=== PATIENT | male | born 1940 | race Caucasian/White ===

== ENCOUNTER 2020-08-03 08:50 | Outpatient (REF) | payer BC, SELFPAY ==
--- NOTE | 2020-08-03 09:11 | XR_ITS ---
EXAMINATION: XR CHEST CLINICAL INFORMATION: History of tobacco use. COMPARISON: 09/24/2006 TECHNIQUE: 2 views of the chest were obtained. FINDINGS: The lungs are well expanded. There is no focal consolidation, edema, or effusion. No pneumothorax. The cardiomediastinal silhouette is within normal limits. No acute osseous abnormality. Degenerative changes noted in the spine. XR/XR chest 2V IMPRESSION: No acute pulmonary finding.
[2020-08-03 09:55] LABS: MANUAL DIFF FLAG NO
[2020-08-03 10:04] LABS: Basophils Percent Auto 0.3 % (0-2); Eosinophils Absolute Auto 0.2 X10*3/uL (0.0-0.4); Eosinophils Percent Auto 1.7 % (0-4); Hematocrit 44.2 % (42-52); Hemoglobin 14.2 g/dl (14.0-18.0); Imm Gran Abs Auto 0.04 X10*3/uL (0.00-0.03); Imm Gran Pct Auto 0.4 % (0.0-0.4); Lymphocytes Absolute Auto 1.8 X10*3/uL (1.2-4.9); Lymphocytes Percent Auto 17.9 % (20-40); Mean Corpuscular HGB Conc 32.1 g/dl (31.0-36.0); Mean Corpuscular Hemoglobin 29.2 pg (27.0-33.0); Mean Corpuscular Volume 90.8 fL (80-98); Mean Platelet Volume 10.3 fL (9.4-12.4); Monocytes Absolute Auto 0.8 X10*3/uL (0.1-1.2); Monocytes Percent Auto 7.8 % (2-11); Neutrophils Absolute Auto 7.4 X10*3/uL (2.0-8.3); Neutrophils Percent Auto 71.9 % (45-73); Platelet Count 323 X10*3/uL (160-400); Red Blood Count 4.87 X10*6/uL (4.60-5.80); Red Cell Distribution Width 13.2 % (11.0-16.0); White Blood Count 10.3 X10*3/uL (4.8-10.8)
[2020-08-03 10:20] LABS: Glucose Urine UA NEG (NEG); Leukocyte Esterase Urine NEG (NEG); Nitrite Urine NEG (NEG); Specific Gravity - Urine 1.025 (1.005-1.025); Urine Blood TRACE (NEG); Urine Ketones NEG (NEG); Urine Protein NEG (NEG-TRACE)
[2020-08-03 10:23] LABS: Appearance Urine HAZY; Color Urine YELLOW
[2020-08-03 10:38] LABS: Alanine Aminotransferase 15 U/L (0-40); Albumin Level 4.1 g/dL (3.5-5.0); Alkaline Phosphatase 134 U/L (39-117); Anion Gap 14 (12-20); Aspartate Amino Transferase 19 U/L (5-37); Bilirubin Total 1.2 mg/dL (0.0-1.0); Blood Urea Nitrogen 24 mg/dL (9-16); Calcium 8.8 mg/dL (8.4-10.2); Carbon Dioxide 26 mmol/L (22-29); Chloride 107 mmol/L (96-108); Cholesterol 169 mg/dL; Estimated Glomerular Filt Rate 56; Glucose Fasting 85 mg/dL (60-99); HDL Cholesterol 38 mg/dL; LDL Cholesterol Calculated 110 mg/dl; Potassium 4.4 mmol/l (3.3-5.1); Sodium 143 mmol/L (135-145); Total Protein 6.7 g/dL (6.5-8.0); Triglycerides 109 mg/dL
[2020-08-03 10:56] LABS: RBC Urine 0 /HPF (0); WBC Urine 0-2 /HPF (0-4)
[2020-08-03 10:57] LABS: Mucus Urine 3+ /LPF
[2020-08-03 11:00] LABS: Prostate Specific Antigen 0.92 ng/mL (<0.05-4.0)
== END 2020-08-03 08:51 | disposition home or self-care (01) ==
LOC: HO.LAB 08:50
PROVIDERS: PCP Internal Medicine; Visit Provider Internal Medicine
DX: E78.00 Pure hypercholesterolemia, unspecified (principal); R63.4 Abnormal weight loss; R35.1 Nocturia; Z87.891 Personal history of nicotine dependence; Z12.5 Encounter for screening for malignant neoplasm of prostate
CPT/HCPCS: 36415; 71046; 80053; 80061; 81001; 84153; 85025

== ENCOUNTER 2021-05-21 11:22 | Outpatient (REF) | payer BC, MEDICARE, SELFPAY ==
[2021-05-21 11:50] LABS: MANUAL DIFF FLAG NO
[2021-05-21 12:16] LABS: Basophils Absolute Auto 0.1 X10*3/uL (0.0-0.2); Basophils Percent Auto 0.3 % (0-2); Eosinophils Absolute Auto 0.2 X10*3/uL (0.0-0.4); Eosinophils Percent Auto 1.4 % (0-4); Hemoglobin 15.1 g/dl (14.0-18.0); Imm Gran Abs Auto 0.06 X10*3/uL (0.00-0.03); Imm Gran Pct Auto 0.4 % (0.0-0.4); Lymphocytes Absolute Auto 1.6 X10*3/uL (1.2-4.9); Lymphocytes Percent Auto 11.2 % (20-40); Mean Corpuscular HGB Conc 32.8 g/dl (31.0-36.0); Mean Corpuscular Hemoglobin 30.5 pg (27.0-33.0); Mean Corpuscular Volume 92.9 fL (80.0-98.0); Monocytes Percent Auto 6.7 % (2-11); Neutrophils Absolute Auto 11.7 x10*3/uL (2.0-8.3); Platelet Count 265 X10*3/uL (160-400); Red Blood Count 4.95 X10*6/uL (4.60-5.80); Red Cell Distribution Width 13.1 % (11.0-16.0); White Blood Count 14.6 X10*3/uL (4.8-10.8)
[2021-05-21 12:48] LABS: Alanine Aminotransferase 16 U/L (0-40); Albumin Level 4.2 g/dL (3.5-5.0); Alkaline Phosphatase 122 U/L (39-117); Anion Gap 15 (12-20); Aspartate Amino Transferase 16 U/L (5-37); Bilirubin Total 0.7 mg/dL (0.0-1.0); Blood Urea Nitrogen 23 mg/dL (9-16); C Reactive Protein 0.52 mg/dL (< or = 0.50); Calcium 9.1 mg/dL (8.4-10.2); Carbon Dioxide 24 mmol/L (22-29); Chloride 106 mmol/L (96-108); Estimated Glomerular Filt Rate 59; Glucose Random 83 mg/dL (60-115); Potassium 4.4 mmol/L (3.3-5.1); Sodium 141 mmol/L (135-145)
[2021-05-21 13:01] LABS: Vitamin B12 425 pg/mL (200-900)
== END 2021-05-21 11:23 | disposition home or self-care (01) ==
LOC: HO.LAB 11:22
PROVIDERS: PCP Internal Medicine; Visit Provider Internal Medicine
DX: E78.00 Pure hypercholesterolemia, unspecified (principal); N18.9 Chronic kidney disease, unspecified; R42 Dizziness and giddiness
CPT/HCPCS: 36415; 80053; 82607; 85025; 86140

== ENCOUNTER 2021-05-30 14:26 | Outpatient (REF) | payer BC, MEDICARE, SELFPAY ==
--- NOTE | ~2021-05-30 | CT_ITS ---
EXAMINATION: CT HEAD WITHOUT CONTRAST CLINICAL INFORMATION: Vertigo and dizziness. COMPARISON: None TECHNIQUE: Contiguous axial imaging was performed from the skull base to vertex without intravenous administration of contrast. This CT examination was performed using dose optimization techniques as appropriate, variously including the following: *Automated exposure control *Adjustment of mA and/or kV according to patient size (this includes techniques or standardized protocols for targeted exams where dose is matched to indication/reason for exam; i.e. extremities or head) *Use of iterative reconstruction technique DLP: 819 mGy-cm FINDINGS: There is no evidence of acute intracranial hemorrhage or territorial infarction. No abnormal mass effect or midline shift is seen. Richardson to white matter differentiation is well preserved. No extra-axial fluid collections are identified. The ventricles are symmetrical but enlarged in size. There is diffuse periventrical hypodensities suggestive of chronic small vessel ischemic changes. The osseous structures and soft tissues are normal. The mastoid air cells and visualized portions of the paranasal sinuses are well aerated. CT/CT head/brain wo con IMPRESSION: 1. No acute intracranial process seen. 2. Age-related cerebral volume loss with chronic small vessel ischemic changes in both cerebral hemispheres.
== END 2021-05-30 14:27 | disposition home or self-care (01) ==
LOC: HO.CT 14:26
PROVIDERS: PCP Internal Medicine; Visit Provider Internal Medicine
DX: R42 Dizziness and giddiness (principal)
CPT/HCPCS: 70450

== ENCOUNTER 2022-04-09 07:40 | Outpatient (REF) | payer BC, MEDICARE, SELFPAY ==
[2022-04-09 07:59] LABS: MANUAL DIFF FLAG NO
[2022-04-09 08:34] LABS: Basophils Percent Auto 0.4 % (0-2); Eosinophils Absolute Auto 0.3 X10*3/uL (0.0-0.4); Eosinophils Percent Auto 2.9 % (0-4); Hematocrit 45.8 % (42.0-52.0); Hemoglobin 15.2 g/dl (14.0-18.0); Imm Gran Abs Auto 0.03 X10*3/uL (0.00-0.03); Imm Gran Pct Auto 0.3 % (0.0-0.4); Lymphocytes Absolute Auto 2.1 X10*3/uL (1.2-4.9); Lymphocytes Percent Auto 20.7 % (20-40); Mean Corpuscular HGB Conc 33.2 g/dl (31.0-36.0); Mean Corpuscular Hemoglobin 30.3 pg (27.0-33.0); Mean Corpuscular Volume 91.2 fL (80.0-98.0); Monocytes Absolute Auto 0.8 X10*3/uL (0.1-1.2); Monocytes Percent Auto 7.7 % (2-11); Neutrophils Absolute Auto 6.8 x10*3/uL (2.0-8.3); Platelet Count 276 X10*3/uL (160-400); Red Blood Count 5.02 X10*6/uL (4.60-5.80)
[2022-04-09 08:58] LABS: Alanine Aminotransferase 23 U/L (0-40); Albumin Level 4.3 g/dL (3.5-5.0); Alkaline Phosphatase 126 U/L (39-117); Anion Gap 14 (12-20); Aspartate Amino Transferase 26 U/L (5-37); Blood Urea Nitrogen 22 mg/dL (9-16); Calcium 9.1 mg/dL (8.4-10.2); Carbon Dioxide 27 mmol/L (22-29); Chloride 105 mmol/L (96-108); Cholesterol 209 mg/dL; Estimated Glomerular Filt Rate > 60; Glucose Fasting 88 mg/dL (60-99); HDL Cholesterol 45 mg/dL; LDL Cholesterol Calculated 140 mg/dl; Potassium 4.5 mmol/L (3.3-5.1); Sodium 141 mmol/L (135-145); Total Protein 6.8 g/dL (6.5-8.0); Triglycerides 122 mg/dL
[2022-04-09 09:21] LABS: Prostate Specific Antigen Scr 0.53 ng/mL (<0.05-4.0)
== END 2022-04-09 07:41 | disposition home or self-care (01) ==
LOC: HO.LAB 07:40
PROVIDERS: Visit Provider Internal Medicine
DX: Z12.5 Encounter for screening for malignant neoplasm of prostate (principal); E78.00 Pure hypercholesterolemia, unspecified; N18.9 Chronic kidney disease, unspecified; R63.5 Abnormal weight gain
CPT/HCPCS: 36415; 80053; 80061; 84153; 85025

== ENCOUNTER 2022-05-13 12:05 | Outpatient (REF) | payer BC, MEDICARE, SELFPAY ==
--- NOTE | ~2022-05-13 | XR_ITS ---
EXAMINATION: XR CHEST CLINICAL INFORMATION: Cough and hemoptysis. Question pneumonia. COMPARISON: Previous chest x-ray most recent July 2020 TECHNIQUE: 2 views of the chest were obtained. FINDINGS: The cardiac and mediastinal contours are stable. There is airspace disease of the right lung base suggestive of pneumonia. There is a small right pleural effusion. The left lung is clear. There is no left pleural effusion. There is no pneumothorax. There are degenerative changes of the spine. XR/XR chest 2V IMPRESSION: Right base pneumonia and small right pleural effusion. Findings will be communicated by the [facility] work flow respiratory care faculty.
== END 2022-05-13 12:06 | disposition home or self-care (01) ==
LOC: HO.XRAY 12:05
PROVIDERS: PCP Internal Medicine; Visit Provider Internal Medicine
DX: R05.9 Cough, unspecified (principal)
CPT/HCPCS: 71046

== ENCOUNTER 2022-05-18 07:54 | Outpatient (REF) | payer BC, MEDICARE, SELFPAY ==
--- NOTE | ~2022-05-18 | XR_ITS ---
EXAMINATION: XR CHEST CLINICAL INFORMATION: Posterior chest pain with coughing of blood. COMPARISON: Chest radiograph 05/13/2022. TECHNIQUE: 2 views of the chest were obtained. FINDINGS: Compared with the prior study, a right pleural effusion has increased in size as has airspace opacity in the right lower lobe. Heart size is normal. The left lung is clear. XR/XR chest 2V IMPRESSION: Increasing size of right pleural effusion with continued presence of right lower lobe infiltrate.
== END 2022-05-18 07:55 | disposition home or self-care (01) ==
LOC: HO.XRAY 07:54
PROVIDERS: PCP Internal Medicine; Visit Provider Internal Medicine
DX: J12.1 Respiratory syncytial virus pneumonia (principal)
CPT/HCPCS: 71046

== ENCOUNTER 2022-05-22 10:21 | Outpatient (REF) | payer BC, MEDICARE, SELFPAY ==
--- NOTE | ~2022-05-22 | CT_ITS ---
EXAMINATION: CT CHEST WITHOUT CONTRAST CLINICAL INFORMATION: Pneumonia. COMPARISON: Chest x-ray 05/18/2022 TECHNIQUE: Multidetector volumetric CT imaging of the chest was done. Axial MIP volume rendering provided. Sagittal and coronal reformatted images were obtained. This CT examination was performed using dose optimization techniques as appropriate, variously including the following: *Automated exposure control *Adjustment of mA and/or kV according to patient size (this includes techniques or standardized protocols for targeted exams where dose is matched to indication/reason for exam; i.e. extremities or head) *Use of iterative reconstruction technique DLP: 231 mGy-cm FINDINGS: [facility] HEAD: Expanded lungs with blunting of right CP angle likely pleural effusion or thickening LUNGS: The lungs are well-expanded with right lower lobe air bronchogram and compressive atelectasis secondary to underlying pleural effusion. The right upper lung and the left lung remains expanded and clear. MEDIASTINUM: Heart size and the great vessels are normal caliber. No pericardial effusion seen. The thyroid lobes are symmetrical and normal. Central trachea and the bronchi widely patent. Small shotty lymph nodes are seen in the pretracheal and precarinal space with the largest lymph node measuring 1.1 cm. CORONARY ARTERY CALCIFICATION: Moderate coronary artery calcifications are present. PLEURA: There is small to moderate right pleural effusion. AXILLA: No abnormal lymph nodes seen in the axilla. The chest wall is unremarkable. UPPER ABDOMEN: Visualized liver, spleen, pancreas and bilateral adrenal glands unremarkable. OSSEOUS STRUCTURES: No aggressive lytic or sclerotic process seen. CT/CT chest wo IV con IMPRESSION: Small to moderate size right pleural effusion with right lower lobe air bronchogram suggestive of infiltrate/atelectasis. Fleischner guidelines were followed.
[2022-05-22 11:03] LABS: MANUAL DIFF FLAG NO
[2022-05-22 11:33] LABS: Basophils Absolute Auto 0.1 X10*3/uL (0.0-0.2); Basophils Percent Auto 0.7 % (0-2); Eosinophils Absolute Auto 0.7 X10*3/uL (0.0-0.4); Eosinophils Percent Auto 5.7 % (0-4); Hematocrit 44.7 % (42.0-52.0); Hemoglobin 14.6 g/dl (14.0-18.0); Imm Gran Abs Auto 0.07 X10*3/uL (0.00-0.03); Imm Gran Pct Auto 0.5 % (0.0-0.4); Lymphocytes Absolute Auto 2.3 X10*3/uL (1.2-4.9); Lymphocytes Percent Auto 17.8 % (20-40); Mean Corpuscular HGB Conc 32.7 g/dl (31.0-36.0); Mean Corpuscular Hemoglobin 29.4 pg (27.0-33.0); Mean Corpuscular Volume 89.9 fL (80.0-98.0); Mean Platelet Volume 9.1 fL (9.4-12.4); Monocytes Absolute Auto 0.8 X10*3/uL (0.1-1.2); Monocytes Percent Auto 6.5 % (2-11); Neutrophils Absolute Auto 8.8 x10*3/uL (2.0-8.3); Neutrophils Percent Auto 68.8 % (45-73); Platelet Count 456 X10*3/uL (160-400); Red Blood Count 4.97 X10*6/uL (4.60-5.80); Red Cell Distribution Width 13.2 % (11.0-16.0); White Blood Count 12.8 X10*3/uL (4.8-10.8)
[2022-05-22 12:07] LABS: Alanine Aminotransferase 20 U/L (0-40); Albumin Level 3.8 g/dL (3.5-5.0); Alkaline Phosphatase 186 U/L (39-117); Anion Gap 13 (12-20); Aspartate Amino Transferase 15 U/L (5-37); Bilirubin Total 0.5 mg/dL (0.0-1.0); Blood Urea Nitrogen 24 mg/dL (9-16); C Reactive Protein 3.62 mg/dL (< or = 0.50); Calcium 8.9 mg/dL (8.4-10.2); Carbon Dioxide 25 mmol/L (22-29); Chloride 106 mmol/L (96-108); Estimated Glomerular Filt Rate > 60; Glucose Random 104 mg/dL (60-115); Potassium 4.3 mmol/L (3.3-5.1); Sodium 140 mmol/L (135-145); Total Protein 6.7 g/dL (6.5-8.0)
== END 2022-05-22 10:22 | disposition home or self-care (01) ==
LOC: HO.CT 10:21
PROVIDERS: PCP Internal Medicine; Visit Provider Internal Medicine
DX: R10.9 Unspecified abdominal pain (principal); J18.9 Pneumonia, unspecified organism
CPT/HCPCS: 36415; 71250; 80053; 85025; 86140

== ENCOUNTER 2022-05-22 13:50 | Outpatient (REF) | payer BC, MEDICARE, SELFPAY ==
[2022-05-22 14:22] LABS: Appearance Urine Clear; Color Urine Yellow; Glucose Urine UA Negative (Negative); Leukocyte Esterase Urine Negative (Negative); Nitrite Urine Negative (Negative); PH 5.5 (5.0-9.0); Specific Gravity - Urine 1.015 (1.005-1.025); Urine Blood Negative (Negative); Urine Ketones Negative (Negative); Urine Protein Negative (Neg-Trace)
[2022-05-22 14:29] LABS: Bacteria Urine None Seen (None Seen); Hyaline Casts Urine 0-2 /LPF (0-2); RBC Urine 0-2 /HPF (0-2); Squamous Epithelial Cell Urine 0-2 /HPF (0-2); WBC Urine 0-5 /HPF (0-5)
== END 2022-05-22 13:51 | disposition home or self-care (01) ==
LOC: HO.LNP 13:50
PROVIDERS: Referring Provider Internal Medicine; Visit Provider Internal Medicine
DX: R10.9 Unspecified abdominal pain (principal); J18.9 Pneumonia, unspecified organism
CPT/HCPCS: 81001; 87086

== ENCOUNTER 2023-04-16 08:46 | Outpatient (REF) | payer BC, MEDICARE, SELFPAY ==
--- NOTE | ~2023-04-16 | XR_ITS ---
EXAMINATION: XR CHEST CLINICAL INFORMATION: Effusion COMPARISON: CT chest from 05/22/2022, chest radiograph from 05/18/2022 TECHNIQUE: 2 views of the chest were obtained. FINDINGS: Chronic interstitial lung markings. Slight bibasilar atelectasis versus scarring. Lobulation of the right hemidiaphragm. No pneumothorax. Trachea is midline. Cardiac mediastinal silhouette is not enlarged. Aorta demonstrates atherosclerotic calcific patient. No large pleural effusion. Degenerative changes of the thoracolumbar spine with anterior bridging osteophytes. Soft tissues are unremarkable. XR/XR chest 2V IMPRESSION: 1. Chronic interstitial lung markings. 2. Slight bibasilar atelectasis versus scarring. 3. Lobulation of the right hemidiaphragm.
[2023-04-16 10:01] LABS: Alanine Aminotransferase 18 U/L (0-40); Albumin Level 4.2 g/dL (3.5-5.0); Alkaline Phosphatase 144 U/L (39-117); Anion Gap 14 (12-20); Aspartate Amino Transferase 25 U/L (5-37); Blood Urea Nitrogen 20 mg/dL (9-16); Calcium 9.4 mg/dL (8.4-10.2); Carbon Dioxide 23 mmol/L (22-29); Chloride 108 mmol/L (96-108); Cholesterol 182 mg/dL (<200); Estimated Glomerular Filt Rate > 60; Glucose Fasting 93 mg/dL (60-99); HDL Cholesterol 44 mg/dL (>40); LDL Cholesterol Calculated 111 mg/dL (<100); Potassium 4.1 mmol/L (3.3-5.1); Sodium 141 mmol/L (135-145); Triglycerides 136 mg/dL (<150)
== END 2023-04-16 08:47 | disposition home or self-care (01) ==
LOC: HO.LAB 08:46
PROVIDERS: PCP Internal Medicine; Visit Provider Internal Medicine
DX: E78.00 Pure hypercholesterolemia, unspecified (principal); N18.9 Chronic kidney disease, unspecified; Z87.09 Personal history of other diseases of the respiratory system; Z12.5 Encounter for screening for malignant neoplasm of prostate
CPT/HCPCS: 36415; 71046; 80053; 80061; 84153; 85025

== ENCOUNTER 2023-09-09 09:18 | Day surgery (SDC) | payer BC, MEDICARE, SELFPAY ==
[2023-09-05 14:47] VITALS: BMI 33.1
--- NOTE | 2023-09-05 15:57 | P.CONAN_ITS ---
Documented by User: Chelsie Dumas NP 09/05/23 15:58 HPI - Anesthesia Eval Consult details Narrative: 83yo M for Colonoscopy [facility] Past Medical History Medical History (Updated 09/05/23 @ 14:46 by Crystal Carmichael, SOILA) Hyperlipidemia Surgical History Surgical History (Updated 09/05/23 @ 14:46 by Crystal Carmichael RN) Hx of colonoscopy Social History Social History (Updated 09/05/23 @ 14:49 by Crystal Carmichael, RN) Household Members: Family Housing: House Tobacco use type: Cigar Are you DNR?: No Advance Directives: No Advance Directives Information Provided: Yes Nutrition Risks: No Nutritional Risk Meds Allergies Allergy/AdvReac Type Severity Reaction Status Date / Time No Known Allergies Allergy Verified 09/05/23 14:47 Home Medications Medication Instructions Recorded Confirmed Last Taken Type simvastatin 10 mg tablet 10 mg PO BEDTIME 09/05/23 09/05/23 Unknown History Exam Height,Weight and Vital Signs: Height 5 ft 6.5 in Weight 94.347 kg Pertinent Lab Results Pertinent Lab Results: Laboratory Tests 04/16/23 08:59 WBC 10.8 Hgb 15.3 Hct 45.5 Plt Count 281 D Sodium 141 Potassium 4.1 Chloride 108 Carbon Dioxide 23 BUN 20 H Creatinine 1.13 Assessment and Plan Assessment Anesthesia Assessment: Chart Reviewed Documented by User: Lu Kennedy MD 09/09/23 10:19 [facility] Active Problems Active Problems: Hyperlipidemia Denies any cardiac or respiratory issues Past Medical History Medical History (Updated 09/05/23 @ 14:46 by Crystal Carmichael RN) Hyperlipidemia Family History Family history of problems with anesthesia: No Surgical History Surgical History (Updated 09/05/23 @ 14:46 by Crystal Carmichael, SOILA) Hx of colonoscopy History of Problems with Anesthesia: No Social History Social History (Updated 09/05/23 @ 14:49 by Crystal Carmichael, SOILA) Household Members: Family Housing: House Tobacco use type: Cigar Are you DNR?: No Advance Directives: No Advance Directives Information Provided: Yes Nutrition Risks: No Nutritional Risk Meds Allergies Allergy/AdvReac Type Severity Reaction Status Date / Time No Known Allergies Allergy Verified 09/05/23 14:47 Home Medications Medication Instructions Recorded Confirmed Last Taken Type simvastatin 10 mg tablet 10 mg PO BEDTIME 09/05/23 09/05/23 Unknown History Exam Height,Weight and Vital Signs: Height 5 ft 6.5 in Weight 94.347 kg Vital Signs Temp Pulse Resp BP Pulse Ox O2 Del Method 09/09/23 09:28 98 F 70 20 146/84 H 97 Room Air Airway Mallampati Class: II TM Dist: >3cm Neck ROM: Full Loose/Missing/Broken Teeth: Yes (Most teeth missing. Only few teeth bottom front. None broken or loose) Heart: RRR Lungs: CTAB Assessment and Plan Assessment Anesthesia Assessment: Anesthesia Plan Discussed and Chart Reviewed Final Anesthetic Review Family History of Problems with Anesthesia: No History of Problems with Anesthesia: No NPO: Yes ASA Class: II Final Preanesthetic Review: No Changes in Pt Med Stat, Meds/Allgs Chart Reviewed, Consent Obtained/Reviewed and Anes Risks/Benef Reviewed Patient Risk: Low Procedure Risk: Low Assessment/Block/Sedation in SS: Assess/Block/Sedation-SS Anesthetic Plan Anesthetic Plan: MAC: and TIVA Disposition: Standard PACU
[2023-09-09 09:28] VITALS: BP 146/84; PULSE 70; RESP 20; TEMP 36.6; O2SAT 97; BMI 33.4
[2023-09-09] MEDS: Lactated Ringers 1,000 ML 100 ML IVCONT (10:02)
--- NOTE | 2023-09-09 10:30 | MHC.SHP ---
Pre-Procedural Eval Section A - 24 Hr Update-Section A only Date of Service: 09/09/23 The patient is an INPATIENT: No Changes since office visit: No Cold of Flu in the past 2 weeks, No New Medical Problems, No Changes in Medication and No Patient answered all questions The patient has been examined within 24 hours of the surgical procedure. The History & Physical has been completed within 30 days and I have reviewed it.: Yes Section B - Complete if H&P > 30 days Chief Complaint: screening Allergies: Allergies Allergy/AdvReac Type Severity Reaction Status Date / Time No Known Allergies Allergy Verified 09/05/23 14:47 Plan I have reviewed the history and physical and performed a pertinent physical examination on my patient. No changes have occurred unless specified. Time Spent With Patient Time: Total time managing care of this patient today ____ minutes.
[2023-09-09 11:08] VITALS: BP 93/39; PULSE 83; RESP 16; TEMP 36.5; O2SAT 95
[2023-09-09 11:23] VITALS: BP 132/71; PULSE 65; RESP 16; O2SAT 95
[2023-09-09 11:31] VITALS: BP 142/77; PULSE 63; RESP 16; TEMP 36.4; O2SAT 95
--- NOTE | 2023-09-09 12:10 | OP_ITS ---
DATE OF SERVICE: 09/09/2023 SURGEON: Scott Galan MD INDICATIONS: Colon cancer screening. PREOPERATIVE DIAGNOSIS: POSTOPERATIVE DIAGNOSIS: PROCEDURE PERFORMED: Colonoscopy to the terminal ileum. ESTIMATED BLOOD LOSS: COMPLICATIONS: ANESTHESIA: Monitored anesthesia care. ASSISTANTS: SPECIMENS: DESCRIPTION OF PROCEDURE: A history and physical was performed. The risks and benefits of the procedure were explained to the patient. Informed consent was obtained. The patient was placed in the left lateral decubitus position. A digital rectal exam was performed and was found to be normal. The Olympus pediatric video colonoscope was introduced into the rectum and advanced to the cecum. The cecum was identified by transillumination, palpation, and identification of ileocecal valve. Examination was performed. The scope was removed. He tolerated the procedure well and was returned to the recovery area in stable condition. FINDINGS: The terminal ileum was examined and appeared normal. The visualized colonic mucosa was normal. The quality of the prep was good. A few scattered diverticula were seen mainly in the left colon. No polyps were identified. Retroflexed examination showed moderate-sized internal hemorrhoids. IMPRESSION: Normal colonoscopy. RECOMMENDATION: 1. Follow up as needed. 2. Repeat colonoscopy is recommended in 10 years for average risk individuals. This is optional based on the patient's age. MD JYOTI Renee/GIOVANNY / [id number]
== END 2023-09-09 12:11 | disposition home or self-care (01) ==
PROVIDERS: PCP Internal Medicine; Visit Provider Internal Medicine Gastroenterology
PROC: 0DJD8ZZ Inspection of Lower Intestinal Tract, Via Natural or Artificial Opening Endoscopic (ICD-10-PCS; CPT 45378; principal; 2023-09-09 11:00)
DX: Z12.11 Encounter for screening for malignant neoplasm of colon (principal); K57.30 Diverticulosis of large intestine without perforation or abscess without bleeding; K64.8 Other hemorrhoids; E78.5 Hyperlipidemia, unspecified; Z79.02 Long term (current) use of antithrombotics/antiplatelets; Z79.899 Other long term (current) drug therapy
CPT/HCPCS: G0121; J2704

== ENCOUNTER 2024-12-28 07:57 | Outpatient (AMB) | payer BC, MEDICARE, SELFPAY ==
--- OUTSIDE RECORDS SUMMARY | 2023-09-09 07:00 | XMS_ITS ---
Author Organization [facility] Address [address] [place] [address] Care Team Providers Care Motion Picture Camera Operator Name Role Phone Garo Velazquez MD Primary Care Provider Scott Doherty Jr [phone] REASON FOR VISIT screening colon Encounters Encounter Location Date Provider Diagnosis [facility] [place] Outpatient [address] [facility] [place] [id number] 09/09/2023 Scott Galan Jr Encounter for screening colonoscopy Z12.11 Assessments Encounter Date Diagnosis (ICD Code) Assessment Notes Treatment Notes Treatment Clinical Notes Section Notes 09/09/2023 Encounter for screening colonoscopy (ICD-10 - Z12.11) Plan Of Treatment No Information Progress Notes * CATHY FISHERDOB:1940 (84 yo M)Acc No.[id number]:09/09/2023 COLON WITH MAC Patient: CATHY VICENTE Provider: Jake Galan MD :1940 A ge:83 Y S ex:Male Date:09/09/2023 Address[address] [place], [id number] Pcp:Garo Velazquez MD Subjective: * Chief Complaints: * 1 . Screening colon. * Medical History: Objective: * Vitals: Assessment: * Assessment: 1. E ncounter for screening colonoscopy - Z12.11 (Primary) Plan: * Treatment: * Procedure Codes: 4 5378 DIAGNOSTIC COLONOSCOPY, 0529F INTRVL 3+YRS PTS CLNSCP DOCD * * The named appointment provid er may or may not be the originator of this progress note, and it is not deemed complete until electronically signed by the appointment provider. Sign off status: Pending * Provider: Jake Galan MD Date: 0 09/09/2023 Generated for Alan sung/Kerwin/Emily on: 0 12/28/2024 08:02 AM EDT
--- NOTE | 2024-12-28 07:56 | MHC.PC.OV ---
Vital Signs 12/28/24 08:08 12/28/24 08:34 Height 5 ft 8 in Weight 97.976 kg BMI 32.8 BP 162/90 H 132/82 Respiration 16 Pulse 90 Pulse Source Pulse Oximeter Temp 97.6 F Temp Source Temporal Artery Scan Pulse Oximetry (%) 95 Oxygen Delivery Method Room Air Intake Visit Reasons: Routine Music Adapter Required: No Accompanied by: Spouse Allergies No Known Allergies Allergy (Verified 12/28/24 07:56) HPI HPI Comments History of Present Illness Details 84-year-old male with history of hyperlipidemia, cigar smoking, obesity presents to the office today accompanied by his for management of chronic conditions as well as to establish care. Hyperlipidemia-compliant with atorvastatin 10 mg daily Cigar smoking-reports smoking cigars ?every now and then?. Reports he does not inhale Obesity-not working on weight loss efforts Elevated alkaline phosphatase levels-chronic, unclear etiology Concerns: None Health maintenance: No longer undergoing colonoscopies PSA not indicated due to age ROS: General: No fevers, malaise, unintentional weight loss HEENT: No blurred vision, diplopia. No sore throat, nasal congestion, rhinorrhea, sinus pain, ear pain Cardiovascular: No chest pain, palpitations, or leg edema Respiratory: No shortness of breath, wheezing, cough Neuro: No headaches, weakness, paresthesias Skin: No rashes or lesions EXAM: Constitutional - Awake and Alert, No apparent distress Eyes - PERRL Cardiovascular - S1S2, RRR, No edema Respiratory - Normal lung expansion, Normal respiratory effort, No respiratory distress, CTA bilaterally Extremities - no calf tenderness bilaterally, no swelling Skin - Warm/Dry Neurological - Alert & oriented x3 Psychological - Appropriate affect PFSH Medical History (Updated 12/28/24 @ 09:59 by JENS Gonzalez) Cigar smoker Obesity Hyperlipidemia Surgical History (Updated 09/05/23 @ 14:46 by Crystal Carmichael, SOILA) Hx of colonoscopy Social History (Updated 09/05/23 @ 14:49 by Crystal Carmichael, SOILA) Household Members: Family Housing: House Tobacco use type: Cigar Questionnaire PHQ-9 Over the last 2 weeks, how often have you been bothered by any of the following problems? 1. Little interest or pleasure in doing things: more than half the days 2. Feeling down, depressed, or hopeless: more than half the days 3. Trouble falling or staying asleep, or sleeping too much: nearly every day 4. Feeling tired or having little energy: more than half the days 5. Poor appetite or overeating: more than half the days 6. Feeling bad about yourself - or that you are a failure or have let yourself or your family down: several days 7. Trouble concentrating on things, such as reading the newspaper or watching television: several days 8. Moving or speaking so slowly that other people could have noticed. Or the opposite - being so fidgety or restless that you have been moving around a lot more than usual: not at all 9. Thoughts that you would be better off or of hurting yourself in some way: not at all Total score: 13 Source: Developed by Drs. Gigi Rojas, Kerri Brown, Herve Baez and colleagues, with an educational nati from [employer] Thrive Questionnaire Date Thrive assessed: 12/28/24 I am a: Patient What is your living situation today?: I have a steady place to live Within the past 12 months, did the food you bought not last and you didn't have the money to get more?: Never true Within the past 12 months, did you worry whether your food would run out before you got money to buy more?: Never true Do you have trouble paying for medicines?: No Do you have trouble getting transportation to medical appointments?: No Do you have trouble paying your heating and electricity bill?: No Do you have trouble taking care of your child, family member or friend?: No Do you have trouble with day-to-day activities such as bathing, preparing meals, shopping, managing finances, etc.?: No Are you currently unemployed and looking for a job?: No Are you interested in more education?: No Please select the resources that you would like help with: None THRIVE Score: 0 CARLOS-7 AMB Questionnaire CARLOS-7 Date CARLOS - 7 assessed: 12/28/24 Feeling nervous, anxious, or on edge: 0 = Not at all Not being able to stop or control worryin = Not at all Worrying too much about different things: 0 = Not at all Trouble relaxin = Not at all Being so restless that it is hard to sit still: 0 = Not at all Becoming easily annoyed or irritable: 0 = Not at all Feeling afraid as if something awful might happen: 0 = Not at all Total CARLOS-7 score (0-4 normal; 5-9 mild; 10-14 moderate; 15-21 severe): 0 Source: Developed by Drs. Gigi Rojas, Kerri Brown, Herve Baez and colleagues, with an educational nati from [employer] Physical exam (Primary Care) Vital Signs: Last Vital Signs Temp 97.6 F 12/28/24 08:08 Pulse 90 12/28/24 08:08 Resp 16 12/28/24 08:08 BP 132/82 12/28/24 08:34 Pulse Ox 95 12/28/24 08:08 Oxygen Delivery Method Room Air 12/28/24 08:08 BMI result Body Mass Index 32.8 Tobacco/Smoking Status: Tobacco use Status Tobacco use type Cigar 12/28/24 07:58 PHQ-9: PHQ-9 Score PHQ-9: Total score 13 12/28/24 08:29 Thrive Assessment: Date of Thrive Assessment Date Thrive assessed 12/28/24 12/28/24 08:12 Coding Level of Care Code New Pt Level 4 (82473) Complex EM visit Add On G2211 Diagnoses Elevated alkaline phosphatase level R74.8 Cigar smoker F17.290 Hyperlipidemia E78.5 Obesity E66.9 Assessment & Plan Assessment & Plan (1) Elevated alkaline phosphatase level: Code(s): R74.8 - Abnormal levels of other serum enzymes Category: Medical Plan: Liver panel ordered. Will also check GGT (2) Cigar smoker: Code(s): F17.290 - Nicotine dependence, other tobacco product, uncomplicated Category: Medical Plan: Counseled on cessation. Educated on increased cardiovascular risk as well as risk factors for malignancy (3) Hyperlipidemia: Code(s): E78.5 - Hyperlipidemia, unspecified Category: Medical Plan: Lipid panel ordered. Continue atorvastatin 10 mg daily. Diet low in saturated fats and highly processed foods advised. (4) Obesity: Code(s): E66.9 - Obesity, unspecified Category: Medical Plan: Class 1 with BMI 32.8. Recommend healthy diet with calorie deficit with emphasis on protein, fruits, vegetables and reducing intake of saturated fats, highly processed foods, refined sugars, simple carbohydrates. Encouraged to incorporate weight-bearing exercise. Plan Follow-up in 6 months. Labs to be completed following visit today. Orders: Orders Liver Panel Today E55.9 - Vitamin D deficiency, unspecified, E66.9 - Obesity, unspecified, R74.8 - Abnormal levels of other serum enzymes Gamma Glutamyl Transpeptidase Today E55.9 - Vitamin D deficiency, unspecified, E66.9 - Obesity, unspecified, R74.8 - Abnormal levels of other serum enzymes Basic Metabolic Panel Today E55.9 - Vitamin D deficiency, unspecified, E66.9 - Obesity, unspecified, R74.8 - Abnormal levels of other serum enzymes Hemoglobin A1c Today E55.9 - Vitamin D deficiency, unspecified, E66.9 - Obesity, unspecified, R74.8 - Abnormal levels of other serum enzymes Complete Blood Count Auto Diff Today E55.9 - Vitamin D deficiency, unspecified, E66.9 - Obesity, unspecified, R74.8 - Abnormal levels of other serum enzymes Lipid Panel Today E55.9 - Vitamin D deficiency, unspecified, E66.9 - Obesity, unspecified, R74.8 - Abnormal levels of other serum enzymes Vitamin D 25-OH Total Today E55.9 - Vitamin D deficiency, unspecified, E66.9 - Obesity, unspecified, R74.8 - Abnormal levels of other serum enzymes
[2024-12-28 08:08] VITALS: BP 162/90; PULSE 90; RESP 16; TEMP 36.4; O2SAT 95; BMI 32.8
[2024-12-28 08:34] VITALS: BP 132/82
== END 2024-12-28 08:47 | disposition home or self-care (01) ==
LOC: HO.HMCHD 07:58
PROVIDERS: PCP Physician Assistant; Visit Provider Physician Assistant
DX: R74.8 Abnormal levels of other serum enzymes (principal); F17.290 Nicotine dependence, other tobacco product, uncomplicated; E78.5 Hyperlipidemia, unspecified; E66.9 Obesity, unspecified

== ENCOUNTER 2025-01-13 11:24 | Outpatient (REF) | payer MEDICARE, SELFPAY ==
--- OUTSIDE RECORDS SUMMARY | 2023-09-09 07:00 | XMS_ITS ---
Author Organization [facility] Address [address] [place] [address] Care Team Providers Care Professional Healthcare Representative Name Role Phone Garo Velazquez MD Primary Care Provider Scott Doherty Jr [phone] REASON FOR VISIT screening colon Encounters Encounter Location Date Provider Diagnosis [facility] [place] Outpatient [address] [facility] [place] [id number] 09/09/2023 Scott Galan Jr Encounter for screening colonoscopy Z12.11 Assessments Encounter Date Diagnosis (ICD Code) Assessment Notes Treatment Notes Treatment Clinical Notes Section Notes 09/09/2023 Encounter for screening colonoscopy (ICD-10 - Z12.11) Plan Of Treatment No Information Progress Notes * CATHY FISHERDOB:1940 (84 yo M)Acc No.[id number]:09/09/2023 COLON WITH MAC Patient: CATHY VICENTE Provider: Jake Galan MD :1940 A ge:83 Y S ex:Male Date:09/09/2023 Address:[address] [place] [place], [place] Pcp:Garo Velazquez MD Subjective: * Chief Complaints: [...] 09/09/2023 Generated for Alan sung/Kerwin/Emily on: 0 01/13/2025 12:03 PM EDT
[2025-01-13 13:06] LABS: MANUAL DIFF FLAG NO
[2025-01-13 13:09] LABS: Hematocrit 47.0 % (42.0-52.0); Hemoglobin 15.9 g/dl (14.0-18.0); Imm Gran Abs Auto 0.03 X10*3/uL (0.00-0.03); Imm Gran Pct Auto 0.2 % (0.0-0.4); Lymphocytes Absolute Auto 2.4 X10*3/uL (1.2-4.9); Mean Corpuscular HGB Conc 33.8 g/dl (31.0-36.0); Mean Corpuscular Hemoglobin 30.7 pg (27.0-33.0); Mean Corpuscular Volume 90.7 fL (80.0-98.0); NRBC Abs Auto 0.000 X10*3/uL (0.0-0.012); NRBC Pct Auto 0.0 /100WBC (0.0-0.2); Platelet Count 281 X10*3/uL (160-400); Red Blood Count 5.18 X10*6/uL (4.60-5.80); White Blood Count 12.3 X10*3/uL (4.8-10.8)
[2025-01-13 13:24] LABS: Hemoglobin A1C 156.3693 umol/L; Total Hemoglobin (HGBA1C) 4052.8812 umol/L
[2025-01-13 13:27] LABS: Alanine Aminotransferase 31 U/L (0-40); Albumin Level 4.4 g/dL (3.5-5.0); Alkaline Phosphatase 149 U/L (39-117); Anion Gap 11 (12-20); Aspartate Amino Transferase 29 U/L (5-37); Blood Urea Nitrogen 17 mg/dL (9-16); Calcium 9.1 mg/dL (8.4-10.2); Carbon Dioxide 26 mmol/L (22-29); Chloride 105 mmol/L (96-108); Cholesterol 182 mg/dL (<200); Estimated Glomerular Filt Rate 56; Gamma Glutamyl Transpeptidase 31 U/L (11-51); HDL Cholesterol 37 mg/dL (>40); Potassium 4.2 mmol/L (3.3-5.1); Sodium 138 mmol/L (135-145); Total Protein 7.2 g/dL (6.5-8.0); Triglycerides 262 mg/dL (<150)
== END 2025-01-13 11:25 | disposition home or self-care (01) ==
LOC: HO.10HDL 11:24
PROVIDERS: Visit Provider Physician Assistant
DX: R74.8 Abnormal levels of other serum enzymes (principal); E66.9 Obesity, unspecified; E55.9 Vitamin D deficiency, unspecified
CPT/HCPCS: 36415; 80048; 80061; 80076; 82306; 82977; 83036; 85025